=== PATIENT | male | born 1955 | race Caucasian/White ===

== ENCOUNTER 2018-04-18 10:31 | Inpatient (IN) | payer OTHER ==
--- NOTE | 2018-04-18 11:47 | XR ---
EXAMINATION TYPE: XR chest 2V DATE OF EXAM: 04/18/2018 COMPARISON: None INDICATION: Pain difficulty swallowing TECHNIQUE: Frontal and lateral views of the chest are obtained. FINDINGS: The heart size is normal. The pulmonary vasculature is normal. The lungs are clear. IMPRESSION: 1. No acute pulmonary process.
[2018-04-18 12:18] LABS: Basophils % (A) 1 %; Eosinophils # (A) 0.1 k/uL (0-0.7); Eosinophils % (A) 1 %; HCT 34.7 % (39.0-53.0); HGB 11.2 gm/dL (13.0-17.5); Lymphocytes % (A) 16 %; MCH 30.8 pg (25.0-35.0); MCHC 32.4 g/dL (31.0-37.0); MCV 94.9 fL (80.0-100.0); Mean Platelet Volume 6.5; Monocytes # (A) 0.3 k/uL (0-1.0); Monocytes % (A) 5 %; Neutrophils # (A) 4.5 k/uL (1.3-7.7); Neutrophils % (A) 75 %; Platelet Count 276 k/uL (150-450); RBC 3.65 m/uL (4.30-5.90); RDW 13.1 % (11.5-15.5)
[2018-04-18 12:30] LABS: ALT 32 U/L (21-72); AST 20 U/L (17-59); Albumin 3.2 g/dL (3.5-5.0); Alkaline Phosphatase 33 U/L (38-126); Anion Gap 4 mmol/L; Blood Urea Nitrogen 17 mg/dL (9-20); Calcium 8.5 mg/dL (8.4-10.2); Carbon Dioxide 28 mmol/L (22-30); Chloride 104 mmol/L (98-107); Glucose 91 mg/dL (74-99); Potassium 4.3 mmol/L (3.5-5.1); Sodium 136 mmol/L (137-145); Total Bilirubin 0.4 mg/dL (0.2-1.3); Total Protein 5.8 g/dL (6.3-8.2)
--- NOTE | 2018-04-18 13:22 | CT ---
EXAMINATION TYPE: CT soft tissue neck w con DATE OF EXAM: 04/18/2018 COMPARISON: None HISTORY: dysphagia CT DLP: 168.4 mGycm CONTRAST: Patient injected with 100 mL of Isovue 300. TECHNIQUE: Axial images at 3 mm thick sections. Reconstructed images in the coronal plane and sagitt al plane are reviewed. FINDINGS: Limited CT sections are obtained the lung apices. The lung apices appear clear. CT neck: The torus tubarius and fossa of Rosenmuller are normal. Facility Technician spaces are normal. Para nasal sinuses and mastoid air cells are clear. Parotid glands appear normal and symmetrical. Submandibular glands, are normal. Parapharyngeal spac es are normal. There appears be an enlarged right jugulodigastric lymph node measuring 1.6 cm with c entral hypodensity. Enlarged right jugulodigastric lymph node may be present measuring 1.3 cm. Largest mass appears to be within the anterior right hypopharynx. This is displacing the epiglottis b ut may involve the aryepiglottic folds. Direct visualization is recommended. Vocal cord level is not well visualized. There may be displacement of the vocal cords. Small airway p asses through this region of the mass. Thyroid as visualized is normal. Osseous structures are normal. IMPRESSIONS: 1. 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 2. Enlarged jugulodigastric lymph nodes bilaterally. Metastasis is not excluded. 3. Report was called to the emergency room PA by Dr. Ramirez by telephone at the time of interpretati on.
--- NOTE | 2018-04-18 13:33 | ED ---
ENT HPI <Modesto Castellano - Last Filed: 04/18/18 13:54> - General Source: patient, RN notes reviewed, old records reviewed Mode of arrival: ambulatory Limitations: no limitations <Lian Aviles - Last Filed: 04/18/18 14:31> - General Chief complaint: ENT Stated complaint: Hard time swollening Time Seen by Provider: 04/18/18 10:46 - History of Present Illness Initial comments: Patient is a 63-year-old male who presents emergency Department today with complaint of difficulty in swallowing and feeling pressure on the right side of his airway for the past few months. Patient does not follow with a primary care physician and is very hesitant to go to doctors. Patient reports that he has had some weight loss. He is only able to swallow liquids and soft foods. Patient states that he has had no chest pain. He does report that it seems that he becomes more winded with his job and unable to breathe better. Patient states that it always seems to be better. He is through his nose rather than his mouth. He is a nonsmoker. (Lian Aviles) - Related Data Home Medications Medication Instructions Recorded Confirmed No Known Home Medications 04/18/18 04/18/18 Allergies Allergy/AdvReac Type Severity Reaction Status Date / Time No Known Allergies Allergy Verified 04/18/18 12:42 Review of Systems ROS Other: All systems not noted in ROS Statement are negative. <Modesto Castellano - Last Filed: 04/18/18 13:54> ROS Other: All systems not noted in ROS Statement are negative. <Lian Aviles - Last Filed: 04/18/18 14:31> ROS Statement: Those systems with pertinent positive or pertinent negative responses have been documented in the HPI. Past Medical History Past Medical History: No Reported History History of Any Multi-Drug Resistant Organisms: None Reported Past Surgical History: Orthopedic Surgery Past Psychological History: No Psychological Hx Reported Smoking Status: Never smoker Past Alcohol Use History: Rare Past Drug Use History: None Reported <Lian Aviles - Last Filed: 04/18/18 14:31> General Exam <Modesto Castellano - Last Filed: 04/18/18 13:54> Limitations: no limitations General appearance: alert, in no apparent distress Head exam: Present: atraumatic, normocephalic, normal inspection Eye exam: Present: normal appearance, PERRL, EOMI. Absent: scleral icterus, conjunctival injection, periorbital swelling ENT exam: Present: normal exam, mucous membranes moist, other (Thyroid feels normal. No obvious lesions or masses over the external neck.) Neck exam: Present: normal inspection, full ROM. Absent: tenderness, meningismus, lymphadenopathy, thyromegaly Respiratory exam: Present: normal lung sounds bilaterally. Absent: respiratory distress, wheezes, rales, rhonchi, stridor Cardiovascular Exam: Present: regular rate, normal rhythm, normal heart sounds. Absent: systolic murmur, diastolic murmur, rubs, gallop, clicks Extremities exam: Present: normal inspection, full ROM, normal capillary refill. Absent: tenderness, pedal edema, joint swelling, calf tenderness Back exam: Present: normal inspection Neurological exam: Present: alert, oriented X3, CN II-XII intact Psychiatric exam: Present: normal affect, normal mood <Lian Aviles - Last Filed: 04/18/18 14:31> - General Exam Comments Initial Comments: This is a 63-year-old male. Alert and oriented 3. Patient appears in no acute distress. (Lian Aviles) Course <Modesto Castellano - Last Filed: 04/18/18 13:54> <Lian Aviles - Last Filed: 04/18/18 14:31> Vital Signs 04/18/18 04/18/18 10:34 13:38 Temperature 98.8 F 99.2 F Pulse Rate 86 81 Respiratory 18 18 Rate Blood Pressure 123/78 124/76 O2 Sat by Pulse 99 99 Oximetry - Reevaluation(s) Reevaluation #1: 04/18/18 13:54 Case discussed with practitioner Stefan, chart reviewed. CT reviewed. Patient does not have emergent airway issue however based on size on computed tomography scan it is felt patient best evaluated by ENT and oncology as an inpatient. Case was discussed in detail with Dr. Lynn who does agree and will admit for hospital call. (Modesto Castellano) Medical Decision Making - Lab Data Result diagrams: 04/18/18 11:58 04/18/18 11:58 <Modesto Castellano - Last Filed: 04/18/18 13:54> - Lab Data Result diagrams: 04/18/18 11:58 02/10/19 11:58 - Radiology Data Radiology results: report reviewed <Lian Aviles - Last Filed: 04/18/18 14:31> - Medical Decision Making 63-year-old male presents emergency department today with months of progressive dysphasia and pressure with on the airway. Patient states he feels like he has swelling on the right side of the side of his neck. Patient states that he has had no fevers or chills. He is a nonsmoker. He does have a raspy voice. He states he is noticed this for many months. At this time patient's labwork was reviewed and unremarkable. EKG shows no changes. Chest x-ray was clear. They did the EKG a troponin test because Patient reports she's had progressive dyspnea. We did complete a CT of the soft tissues of the neck. There is evidence of a large laryngeal mass with airway involvement. Patient was informed of this large mass and his daughter was informed as well. I did discuss the possibility of neoplasm as well as metastases within surrounding lymph nodes. At this time I discussed to start treatment the Patient to be admitted with consult to ENT and oncology. Dr. Castellano discussed the case with [facility]. (Lian Aviles) - Lab Data Lab Results 04/18/18 04/18/18 04/18/18 Range/Units 11:58 11:58 11:58 WBC 6.0 (3.8-10.6) k/uL RBC 3.65 L (4.30-5.90) m/uL Hgb 11.2 L (13.0-17.5) gm/dL Hct 34.7 L (39.0-53.0) % MCV 94.9 (80.0-100.0) fL MCH 30.8 (25.0-35.0) pg MCHC 32.4 (31.0-37.0) g/dL RDW 13.1 (11.5-15.5) % Plt Count 276 (150-450) k/uL Neutrophils % 75 % Lymphocytes % 16 % Monocytes % 5 % Eosinophils % 1 % Basophils % 1 % Neutrophils # 4.5 (1.3-7.7) k/uL Lymphocytes # 1.0 (1.0-4.8) k/uL Monocytes # 0.3 (0-1.0) k/uL Eosinophils # 0.1 (0-0.7) k/uL Basophils # 0.0 (0-0.2) k/uL Sodium 136 L (137-145) mmol/L Potassium 4.3 (3.5-5.1) mmol/L Chloride 104 (98-107) mmol/L Carbon Dioxide 28 (22-30) mmol/L Anion Gap 4 mmol/L BUN 17 (9-20) mg/dL Creatinine 0.67 (0.66-1.25) mg/dL Est GFR (CKD-EPI)AfAm >90 (>60 ml/min/1.73 sqM) Est GFR (CKD-EPI)NonAf >90 (>60 ml/min/1.73 sqM) Glucose 91 (74-99) mg/dL Calcium 8.5 (8.4-10.2) mg/dL Total Bilirubin 0.4 (0.2-1.3) mg/dL AST 20 (17-59) U/L ALT 32 (21-72) U/L Alkaline Phosphatase 33 L (38-126) U/L Troponin I <0.012 (0.000-0.034) ng/mL Total Protein 5.8 L (6.3-8.2) g/dL Albumin 3.2 L (3.5-5.0) g/dL TSH 0.629 (0.465-4.680) mIU/L - Radiology Data 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 Enlarged jugulodigastric lymph nodes bilaterally. Metastases is not excluded. (Lian Aviles) Disposition <Modesto Castellano - Last Filed: 04/18/18 13:54> Is patient prescribed a controlled substance at d/c from ED?: No Time of Disposition: 14:31 <Lian Aviles - Last Filed: 04/18/18 14:31> Clinical Impression: Laryngeal mass, Dysphagia Disposition: ADMITTED IP TO THIS HOSP Condition: Good Referrals: None,Stated [Primary Care Provider] - 1-2 days
[2018-04-18] MEDS ORDERED: NALOXONE 0.4 MG/ML 1 ML VIAL IV PRN (14:31)
[2018-04-18] MEDS ORDERED: ONDANSETRON 4 MG/2 ML VIAL IVP PRN (14:31)
[2018-04-18] MEDS ORDERED: KETOROLAC 30 MG/ML 1 ML VIAL IVP PRN (14:31)
[2018-04-18] MEDS ORDERED: IBUPROFEN 400 MG TAB PO PRN (14:31)
[2018-04-18] MEDS ORDERED: MORPHINE SULFATE 4 MG/ML SYRINGE IV PRN (14:31)
[2018-04-18] MEDS ORDERED: ACETAMINOPHEN TAB 325 MG TAB PO PRN (14:31)
[2018-04-18] MEDS ORDERED: DEXAMETHASONE SOD PHOSPHATE 4 MG/ML 1 ML VIAL IV PRN (15:17)
--- NOTE | 2018-04-18 15:23 | P.HPIM ---
History of Present Illness 63-year-old male came in with complaints of difficulty swallowing and shortness of breath. Patient has been having weight loss patient had a soft tissue neck CT which showed a laryngeal mass anterior and right lateral to the epiglottis highly suspicious for neoplasm with the lymphadenopathy. Same thing was discussed with the patient and ENT consultation will be obtain patient doesn't have any stridor at this time patient has good air entry into bilateral lung espinoza speech therapy evaluation will be obtained. Patient was started on Decadron for inflammation. Patient is not a smoker or a chest x-ray did not show any pneumonic process. Patient is also complaining of some hoarseness in his voice Review of Systems REVIEW OF SYSTEMS: CONSTITUTIONAL: No fever, no malaise, no fatigue. HEENT: No recent visual problems or hearing problems. Denied any sore throat. CARDIOVASCULAR: No chest pain, orthopnea, PND, no palpitations, no syncope. PULMONARY: no hemoptysis. GASTROINTESTINAL: No diarrhea, no nausea, no vomiting, no abdominal pain. NEUROLOGICAL: No headaches, no weakness, no numbness. HEMATOLOGICAL: Denies any bleeding or petechiae. GENITOURINARY: Denies any burning micturition, frequency, or urgency. MUSCULOSKELETAL/RHEUMATOLOGICAL: Denies any joint pain, swelling, or any muscle pain. ENDOCRINE: Denies any polyuria or polydipsia. The rest of the 14-point review of systems is negative. Past Medical History Past Medical History: No Reported History History of Any Multi-Drug Resistant Organisms: None Reported Past Surgical History: Orthopedic Surgery Past Psychological History: No Psychological Hx Reported Smoking Status: Never smoker Past Alcohol Use History: Rare Past Drug Use History: None Reported Medications and Allergies Home Medications Medication Instructions Recorded Confirmed Type No Known Home Medications 04/18/18 04/18/18 History Allergies Allergy/AdvReac Type Severity Reaction Status Date / Time No Known Allergies Allergy Verified 04/18/18 12:42 Physical Exam Vitals: Vital Signs Temp Pulse Resp BP Pulse Ox 04/18/18 13:38 99.2 F 81 18 124/76 99 04/18/18 10:34 98.8 F 86 18 123/78 99 Intake and Output 04/18/18 04/18/18 04/18/18 06:59 14:59 22:59 Other: Weight 74.843 kg PHYSICAL EXAMINATION: GENERAL: The patient is alert and oriented x3, not in any acute distress. Well developed, well nourished. HEENT: Pupils are round and equally reacting to light. EOMI. No scleral icterus. No conjunctival pallor. Normocephalic, atraumatic. No pharyngeal erythema. No thyromegaly. CARDIOVASCULAR: S1 and S2 present. No murmurs, rubs, or gallops. PULMONARY: Chest is clear to auscultation, no wheezing or crackles. ABDOMEN: Soft, nontender, nondistended, normoactive bowel sounds. No palpable organomegaly. MUSCULOSKELETAL: No joint swelling or deformity. EXTREMITIES: No cyanosis, clubbing, or pedal edema. NEUROLOGICAL: Gross neurological examination did not reveal any focal deficits. SKIN: No rashes. Results CBC & Chem 7: 04/18/18 11:58 04/18/18 11:58 Labs: Abnormal Lab Results - Last 24 Hours (Table) 04/18/18 04/18/18 Range/Units 11:58 11:58 RBC 3.65 L (4.30-5.90) m/uL Hgb 11.2 L (13.0-17.5) gm/dL Hct 34.7 L (39.0-53.0) % Sodium 136 L (137-145) mmol/L Alkaline Phosphatase 33 L (38-126) U/L Total Protein 5.8 L (6.3-8.2) g/dL Albumin 3.2 L (3.5-5.0) g/dL Assessment and Plan Plan: -Laryngeal mass with lymphadenopathy: Patient doesn't have any stridor her immediate airway compromise clinically. Patient the will be a valid by ENT and will need a biopsy. Patient was started on inhaled steroids. -Mild shortness of breath secondary to the letting L mass -Difficulty swallowing will obtain speech therapy evaluation swallowing difficulties probably from lymphadenopathy or laryngeal mass. Patient related for Paula J prophylaxis and early ambulation will not need pharmacologic DVT prophylaxis
[2018-04-18] MEDS: SODIUM CHLORIDE 0.9% 1,000 ML IV SCH (16:28)
[2018-04-18] MEDS: LORazepam 2 MG/ML INJ IV PRN (23:20)
[2018-04-19] MEDS: SODIUM CHLORIDE 0.9% 1,000 ML IV SCH ×3 (02:03→23:39)
[2018-04-19] MEDS: PANTOPRAZOLE 40 MG/10 ML VIAL IV SCH (07:46)
--- NOTE | 2018-04-19 11:41 | FL ---
EXAMINATION TYPE: FL barium swallow w video DATE OF EXAM: 04/19/2018 COMPARISON: NONE HISTORY: Mass and hypopharynx TECHNIQUE: Fluoroscopy. FINDINGS: Fluoroscopic guidance was provided for the procedure performed in conjunction with the [facility] [place] pathology department. Please see complete report forthcoming from the Speech Pathology departmen t. Various consistencies from thin liquid to solids were administered. Fluoroscopy time 3 minutes 15 second Number of images: 0. Penetration was evident with thin liquids and nectar thick liquids as well as honey thick liquids. Po ssible penetration was present with crackers coated with barium. Aspiration was noted with nectar thi ck liquids. This appeared to be silent patient however had good voluntary ability to clear. No signif icant change and propulsion was evident with a chin tuck. IMPRESSION: 1. Frequent episodes of penetration with various consistencies. 2. Aspiration occurred with honey thick liquids.
[2018-04-19 14:47] VITALS: BMI 17.0
--- NOTE | 2018-04-19 19:30 | P.PN ---
Subjective Progress Note Date: 04/19/18 Hospital course: 63-year-old male came in with complaints of difficulty swallowing and shortness of breath. Patient has been having weight loss patient had a soft tissue neck CT which showed a laryngeal mass anterior and right lateral to the epiglottis highly suspicious for neoplasm with the lymphadenopathy. Same thing was discussed with the patient and ENT consultation will be obtain patient doesn't have any stridor at this time patient has good air entry into bilateral lung espinoza speech therapy evaluation will be obtained. Patient was started on Decadron for inflammation. Patient is not a smoker or a chest x-ray did not show any pneumonic process. Patient is also complaining of some hoarseness in his voice 04/19/2018 per staff, ENT recommends outpatient treatment.underwent modified barium swallow,frequent episodes of penetration with various consistencies, aspiration occurred with honey thickened liquids.per speech therapy moderate impairmentwith recommendations of PEG tube-please refer to speech therapy's detailed note.Further discussion between Dr. Lynn and family pending. maintaining O2 sats of 92-100% on room air. Rhonchorous breath sounds. REVIEW OF SYSTEMS: CONSTITUTIONAL: No fever, no malaise, no fatigue. HEENT: No recent visual problems or hearing problems. Denied any sore throat. CARDIOVASCULAR: No chest pain, orthopnea, PND, no palpitations, no syncope. PULMONARY: no hemoptysis. GASTROINTESTINAL: No diarrhea, no nausea, no vomiting, no abdominal pain. NEUROLOGICAL: No headaches, no weakness, no numbness. HEMATOLOGICAL: Denies any bleeding or petechiae. GENITOURINARY: Denies any burning micturition, frequency, or urgency. MUSCULOSKELETAL/RHEUMATOLOGICAL: Denies any joint pain, swelling, or any muscle pain. ENDOCRINE: Denies any polyuria or polydipsia. The rest of the 14-point review of systems is negative. Active Medications Acetaminophen (Tylenol Tab) 650 mg PO Q6HR PRN PRN Reason: Mild Pain or Fever > 100.5 Dexamethasone Sodium Phosphate (Decadron) 4 mg IV Q6HR PRN PRN Reason: Nausea And Vomiting Sodium Chloride (Saline 0.9%) 1,000 mls @ 100 mls/hr IV .Q10H JUANITA Last Admin: 04/19/18 11:46 Dose: Not Given Ketorolac Tromethamine (Toradol) 30 mg IVP Q6HR PRN PRN Reason: Moderate Pain Stop: 04/23/18 14:32 Lorazepam (Ativan) 0.5 mg IV Q6HR PRN PRN Reason: Anxiety Last Admin: 04/18/18 23:20 Dose: 0.5 mg Morphine Sulfate (Morphine Sulfate (Inj)) 4 mg IV Q4HR PRN PRN Reason: Severe Pain Naloxone HCl (Narcan) 0.2 mg IV Q2M PRN PRN Reason: Opioid Reversal Ondansetron HCl (Zofran) 4 mg IVP Q8HR PRN PRN Reason: Nausea And Vomiting Pantoprazole Sodium (Protonix) 40 mg IV DAILY JUANITA Last Admin: 04/19/18 07:46 Dose: 40 mg Objective - Vital Signs Vital signs: Vital Signs Temp 97.9 F 04/19/18 15:00 Pulse 93 04/19/18 15:00 Resp 12 04/19/18 15:00 BP 115/69 04/19/18 15:00 Pulse Ox 100 04/19/18 15:00 Intake & Output 04/19/18 04/19/18 04/20/18 06:59 18:59 06:59 Intake Total 1850 Balance 1850 Weight 60.328 kg Intake: Intake, IV Titration 1600 Amount Sodium Chloride 0.9% 1, 1600 000 ml @ 100 mls/hr IV . Q10H JUANITA Rx#:[id number] Oral 250 Other: # Voids 2 - Exam GENERAL: The patient is alert and oriented x3, not in any acute distress. Well developed, well nourished. HEENT: Pupils are round and equally reacting to light. EOMI. No scleral icterus. No conjunctival pallor. Normocephalic, atraumatic. CARDIOVASCULAR: S1 and S2 present. No murmurs, rubs, or gallops. PULMONARY: Chest is clear to auscultation,scattered rhonchi throughout, no wheezing or crackles. ABDOMEN: Soft, nontender, nondistended, normoactive bowel sounds. No palpable organomegaly. MUSCULOSKELETAL: No joint swelling or deformity. EXTREMITIES: No cyanosis, clubbing, or pedal edema. NEUROLOGICAL: Gross neurological examination did not reveal any focal deficits. SKIN: No rashes. - Labs CBC & Chem 7: 04/18/18 11:58 04/18/18 11:58 Assessment and Plan Assessment: -Laryngeal mass with lymphadenopathy: Patient doesn't have any stridor her immediate airway compromise clinically. Patient the will be a valid by ENT and will need a biopsy. Patient was started on inhaled steroids. -Mild shortness of breath secondary to the laryngeal mass -Difficulty swallowing will obtain speech therapy evaluation swallowing difficulties probably from lymphadenopathy or laryngeal mass. Patient related for Paula J prophylaxis and early ambulation will not need pharmacologic DVT prophylaxis plan: Continue on current medication regime ,monitoring and symptomatic treatment. Dr. Lynn updated on modified barium swallowesults per speech therapy, including recommendations of PEG tube;his further discussion with family pending. GI consulted for potential PEG tube placement. ENT recommendations noted of outpatient treatment.oncology consult in place with recommendations pending.strict aspiration precautions.Prognosis guarded given multiple complex medical issues. The impression and plan of care has been dictated as directed. : I performed a history and examination of this patient, discussed the same with the dictator. I agree with the dictator's note ,documented as a scribe. Any additional findings or plans will be noted.
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
[2018-04-19] MEDS: LORazepam 2 MG/ML INJ IV PRN (23:39)
[2018-04-20] MEDS: SODIUM CHLORIDE 0.9% 1,000 ML IV SCH (05:29)
[2018-04-20] MEDS: PANTOPRAZOLE 40 MG/10 ML VIAL IV SCH (07:05)
[2018-04-20 08:01] LABS: Basophils % (A) 1 %; Eosinophils # (A) 0.2 k/uL (0-0.7); Eosinophils % (A) 2 %; HCT 38.9 % (39.0-53.0); HGB 12.8 gm/dL (13.0-17.5); Lymphocytes # (A) 1.5 k/uL (1.0-4.8); Lymphocytes % (A) 22 %; MCH 31.5 pg (25.0-35.0); MCHC 32.9 g/dL (31.0-37.0); MCV 95.9 fL (80.0-100.0); Mean Platelet Volume 6.5; Monocytes # (A) 0.3 k/uL (0-1.0); Monocytes % (A) 4 %; Neutrophils # (A) 4.5 k/uL (1.3-7.7); Neutrophils % (A) 67 %; Platelet Count 299 k/uL (150-450); RBC 4.05 m/uL (4.30-5.90); RDW 13.2 % (11.5-15.5); WBC 6.7 k/uL (3.8-10.6)
[2018-04-20 08:24] LABS: Anion Gap 5 mmol/L; Blood Urea Nitrogen 13 mg/dL (9-20); Calcium 9.1 mg/dL (8.4-10.2); Carbon Dioxide 31 mmol/L (22-30); Chloride 104 mmol/L (98-107); Glucose 87 mg/dL (74-99); Potassium 4.3 mmol/L (3.5-5.1); Sodium 140 mmol/L (137-145)
[2018-04-20 16:17] VITALS: BP 131/81; PULSE 89; RESP 16; TEMP 98
--- NOTE | 2018-04-20 17:38 | P.PN ---
Subjective Progress Note Date: 04/20/18 Principal diagnosis: Laryngeal mass Planning on outpatient bx Objective - Vital Signs Vital signs: Vital Signs Temp 98 F 04/20/18 15:00 Pulse 89 04/20/18 15:00 Resp 16 04/20/18 15:00 BP 131/81 04/20/18 15:00 Pulse Ox 98 04/20/18 15:00 Intake & Output 04/19/18 04/20/18 04/20/18 18:59 06:59 18:59 Intake Total 800 Balance 800 Weight 60.328 kg Intake: Intake, IV Titration 800 Amount Sodium Chloride 0.9% 1, 800 000 ml @ 100 mls/hr IV . Q10H JUANITA Rx#:[id number] Other: Voiding Method Toilet Toilet # Voids 2 - Exam en: ALert and Oriented, NAD Neck: Supple, No apparent palpable masses, fullness, shotty LN, no Stridor Lungs: No increased respiratory effort, Lungs CTA bilateral Heart : RRR, S1s2 Abdomen: Soft, ND, NT Extremities no edema positive pulse Neuro - Non focal - Labs CBC & Chem 7: 04/20/18 07:08 04/20/18 07:08 Labs: Abnormal Lab Results - Last 24 Hours (Table) 04/20/18 04/20/18 Range/Units 07:08 07:08 RBC 4.05 L (4.30-5.90) m/uL Hgb 12.8 L (13.0-17.5) gm/dL Hct 38.9 L (39.0-53.0) % Carbon Dioxide 31 H (22-30) mmol/L Assessment and Plan Plan: Assessment and Recommendations: 1. New Laryngeal Mass with enlarged Lymph nodes: - Will need biopsy for tissue biopsy, await recs ENT - Full Staging work-up can be completed with Outpatient pet or CT scans dependong on biopsy results. 2. 25lb weight loss in 3 months 3. Shortness of Breath Plan follow-up in [facility] after biopsy resulted Physician Attestion : I have completed the full history and physical of this patient, I have developed the complete impression and plan and agree with above dictation, dictated as a scribe.
== END 2018-04-20 17:03 | disposition home or self-care (01) | DRG 155 ==
LOC: EC 10:31 → 4SSUR 13:55
PROVIDERS: ADMIT Hospitalist; ATTEND Hospitalist
DX: J38.7 Other diseases of larynx (principal); Z68.1 Body mass index [BMI] 19.9 or less, adult; R13.10 Dysphagia, unspecified; R59.0 Localized enlarged lymph nodes; R63.4 Abnormal weight loss; R06.02 Shortness of breath
CPT/HCPCS: 36415; 70491; 71046; 74230; 80048; 80053; 84443; 84484; 85025; 93005; 99285